=== PATIENT | male | born 1960 | race Caucasian/White ===

== ENCOUNTER 2018-08-16 11:57 | Observation (INO) | payer MEDICARE, MEDICAID ==
[~2018-08-16] VITALS: Ht 172.7 cm; Wt 111.6 kg
[2018-08-16] MEDS ORDERED: CLOZ100T18 PO (12:10)
[2018-08-16] MEDS ORDERED: LORA0.5T PO (12:10)
[2018-08-16] MEDS ORDERED: MONT10TA9 PO (12:10)
[2018-08-16] MEDS ORDERED: [UNRECOGNIZED DRUG - OTHER] (12:10)
[2018-08-16] MEDS ORDERED: PROP10TA PO (12:10)
[2018-08-16] MEDS ORDERED: METF500T17 PO (12:10)
[2018-08-16] MEDS ORDERED: SODIUM CHLORIDE FLUSH 10ML SYR IVF ONE (12:30)
[2018-08-16 13:08] LABS: BASOPHILS # (AUTO) 0.06 x10^3/uL (0-0.1); BASOPHILS % (AUTO) 1 % (0-1); EOSINOPHILS # (AUTO) 0.02 x10^3/uL (0-0.4); EOSINOPHILS % (AUTO) 0 % (1-7); LYMPHOCYTES # (AUTO) 1.66 x10^3/uL (1-3.4); LYMPHOCYTES % (AUTO) 24 % (22-44); MD NO; MEAN CORPUSCULAR HEMOGLOBIN 29.3 pg (27.5-34.5); MEAN CORPUSCULAR HGB CONC 33.1 g/dL (33.2-36.2); MEAN CORPUSCULAR VOLUME 88.6 fL (81-97); MEAN PLATELET VOLUME 7.1 fL (7.4-10.4); MONOCYTES # (AUTO) 0.65 x10^3/uL (0.2-0.8); MONOCYTES % (AUTO) 10 % (2-9); NEUTROPHILS # (AUTO) 4.49 x10^3/uL (1.8-6.8); NEUTROPHILS % (AUTO) 65 % (42-75); PLATELET COUNT 278 x10^3/uL (130-400); RED BLOOD COUNT 4.34 x10^6/uL (4.38-5.82); RED CELL DISTRIBUTION WIDTH 13.8 % (9.4-14.8)
[2018-08-16 13:12] LABS: ALANINE AMINOTRANSFERASE 30 U/L (12-78); ALBUMIN 3.6 g/dL (3.4-5.0); ANION GAP 9 mmol/L (5-15); CALCIUM 8.3 mg/dL (8.5-10.1); CHLORIDE 107 mmol/L (98-107); CREATININE 0.83 mg/dL (0.7-1.3)
[2018-08-16 13:17] LABS: ALKALINE PHOSPHATASE 57 U/L (45-117); BILIRUBIN,TOTAL 0.3 mg/dL (0.2-1.0); TOTAL PROTEIN 6.7 g/dL (6.4-8.2); TROPONIN I < 0.015 ng/mL (0.000-0.045)
[2018-08-16 15:31] VITALS: BP 145/86
[2018-08-16 15:38] VITALS: BP 145/80
[2018-08-16] MEDS ORDERED: ACETAMINOPHEN 325 MG TABLET PO PRN (16:00)
[2018-08-16] MEDS ORDERED: ONDANSETRON ODT 4 MG PO PRN (16:00)
[2018-08-16] MEDS ORDERED: TEMAZEPAM 15 MG CAPSULE PO PRN (16:00)
[2018-08-16 18:40] VITALS: BP 151/87
[2018-08-16] MEDS: CLOZAPINE 100 MG TABLET HOMEMEDPO SCH (20:43)
[2018-08-17] VITALS (11 sets, daily range): BP systolic 95–135; BP diastolic 69–90
[2018-08-17] MEDS: CLOZAPINE 100 MG TABLET HOMEMEDPO SCH (08:21)
[2018-08-17] MEDS ORDERED: MECLIZINE CHEWABLE 25 MG TAB ONE (16:08)
[2018-08-17] MEDS: MECLIZINE CHEWABLE 25 MG TAB PO PRN (16:11)
[2018-08-17] MEDS: SODIUM CHLORIDE 0.9% 1,000 ML IV SCH (16:13)
[2018-08-17] MEDS ORDERED: FENO145T30 PO (20:45)
[2018-08-17] MEDS ORDERED: DIVA500T17 PO (20:45)
[2018-08-17] MEDS ORDERED: DIVALPROEX 500 MG TAB.ER.24H PO SCH (21:00)
[2018-08-17] MEDS ORDERED: CLOZAPINE 100 MG TABLET HOMEMEDPO SCH (21:00)
[2018-08-18 01:17] VITALS: BP 116/75
[2018-08-18] MEDS: SODIUM CHLORIDE 0.9% 1,000 ML IV SCH (05:06)
[2018-08-18 07:45] VITALS: BP_SYST 110; BP_SYST 116; BP_SYST 124; BP_DIAS 77; BP_DIAS 84
[2018-08-18] MEDS ORDERED: FENOFIBRATE 145 MG TABLET PO SCH (09:00)
[2018-08-18] MEDS ORDERED: LORazepam 0.5MG TABLET PO PRN (09:00)
[2018-08-18] MEDS ORDERED: GADOBUTROL 10 MMOL/10 ML PFS ONE (12:27)
[2018-08-18 12:43] VITALS: BP 146/88
[2018-08-18] MEDS ORDERED: MECL-85 PO (15:10)
[2018-08-18] MEDS: MECLIZINE CHEWABLE 25 MG TAB PO PRN (15:47)
[2018-08-18] MEDS ORDERED: metFORMIN 500 MG TABLET PO SCH (17:00)
[2018-08-18] MEDS ORDERED: PROPRANOLOL 10 MG TABLET PO SCH (18:00)
== END 2018-08-18 16:45 | disposition home or self-care (01) ==
LOC: ED 13:57 → INTOOBSV 14:31 → EDIP 14:31 → 4EST 15:29 → DCLOUNGE 08-18 16:24
PROVIDERS: ADMIT Internal Medicine; ATTEND Internal Medicine
DX: R55 Syncope and collapse (principal); E78.00 Pure hypercholesterolemia, unspecified; F20.9 Schizophrenia, unspecified; E74.39 Other disorders of intestinal carbohydrate absorption; R73.03 Prediabetes; S39.012A Strain of muscle, fascia and tendon of lower back, initial encounter; W18.30XA Fall on same level, unspecified, initial encounter; Y93.89 Activity, other specified; Y92.89 Other specified places as the place of occurrence of the external cause; Y99.8 Other external cause status; I50.30 Unspecified diastolic (congestive) heart failure; Z86.73 Personal history of transient ischemic attack (TIA), and cerebral infarction without residual deficits
CPT/HCPCS: 36415; 70450; 70553; 71045; 80053; 84484; 85025; 93005; 93306; 96360; 96361; 97162; 99285; A9585; G0378; G8978; G8979; G8980; J7030